=== PATIENT | female | born 1990 | race Two or more races ===

== ENCOUNTER 2022-03-07 16:36 | Emergency (ER) | payer OTHER ==
[2022-03-07 18:39] LABS: HEMOGLOBIN 12.2 gm/dl (12.3-15.3); RED BLOOD COUNT 4.6 M/UL (4.00-5.10); WHITE BLOOD COUNT 8.5 K/UL (4.5-11.0)
[2022-03-07 19:16] LABS: BUN/CREATININE RATIO 13 (0-10)
[2022-03-07] MEDS ORDERED: IBUPROFEN600 MG PO (20:15)
[2022-03-07] MEDS ORDERED: ZOFRAN ODT 4 MG4 MG GT (20:15)
== END 2022-03-07 21:22 | disposition home or self-care (01) ==
LOC: ER1 16:36
PROVIDERS: Emergency Medicine
DX: E86.0 Dehydration (principal); R11.2 Nausea with vomiting, unspecified; R19.7 Diarrhea, unspecified; Z20.822 Contact with and (suspected) exposure to COVID-19
CPT/HCPCS: 0240U; 80053; 81001; 84703; 85025; 96374; 99284